=== PATIENT | male | born 1985 | race Asian ===

== ENCOUNTER 2016-07-24 20:33 | Emergency (ER) | payer OTHER ==
[~2016-07-24] VITALS: Ht 175.3 cm; Wt 79.4 kg
[2016-07-24 21:17] VITALS: BP 155/88; TEMP 98.6
== END 2016-07-24 21:19 | disposition home or self-care (01) ==
LOC: ED 20:33
PROC: 2W25X4Z Dressing of Back using Bandage (ICD-10-PCS; principal; 2016-07-24)
DX: T21.24XA Burn of second degree of lower back, initial encounter (principal); X08.8XXA Exposure to other specified smoke, fire and flames, initial encounter; Y93.89 Activity, other specified; Y92.89 Other specified places as the place of occurrence of the external cause
CPT/HCPCS: 96372; 99284; J1885